=== PATIENT | male | born 1970 | race Hispanic/Latino ===

== ENCOUNTER 2017-08-08 01:35 | Inpatient (IN) | payer OTHER ==
[2017-08-08] VITALS (11 sets, daily range): BP systolic 104–136; BP diastolic 69–90
[~2017-08-08] VITALS: Ht 180.3 cm; Wt 104.8 kg
[2017-08-08] MEDS ORDERED: GLUCAGON 1MG KIT 1 MG ML IM PRN (02:15)
[2017-08-08] MEDS ORDERED: DEXTROSE 50%-WATER 50 ML DISP.SYRIN IV PRN (02:15)
[2017-08-08] MEDS ORDERED: MORPHINE SULFATE 2 MG/ML 1ML SYG IVP PRN ×2 (02:45)
[2017-08-08] MEDS: INSULIN R NPO SS1/2 SQ SCH ×2 (06:00→11:34)
[2017-08-08] MEDS ORDERED: HEPARIN SODIUM 1000UNIT/ML 10ML VIAL ONE (08:10)
[2017-08-08] MEDS ORDERED: IOPAMIDOL-370 75 ML VIAL IV ONE (08:10)
[2017-08-08] MEDS ORDERED: IOPAMIDOL-370 100 ML VIAL IV ONE (08:10)
[2017-08-08] MEDS ORDERED: LIDOCAINE HCL 2% 20ML ONE (08:11)
[2017-08-08] MEDS ORDERED: ASPIRIN 81MG TAB.CHEW PO SCH (09:00)
[2017-08-08] MEDS ORDERED: PANTOPRAZOLE SODIUM 40 MG TABLET.DR PO SCH (09:00)
[2017-08-08] MEDS ORDERED: DOCUSATE SODIUM 100 MG CAP PO SCH (09:00)
[2017-08-08] MEDS ORDERED: INSULIN DETEMIR 10ML 100 UNIT/ML 10ML SQ SCH (09:00)
[2017-08-08] MEDS ORDERED: ENOXAPARIN SODIUM 40 MG/0.4 ML SYRINGE SQ SCH (09:00)
[2017-08-08] MEDS ORDERED: ASPI-1005 PO (09:07)
[2017-08-08] MEDS ORDERED: ATOR40TA69 PO (09:07)
[2017-08-08] MEDS ORDERED: ACETAMINOPHEN EXTRA STRENGTH 500 MG TABLET PO SCH (12:15)
[2017-08-08] MEDS ORDERED: INSULIN R PO SS1/2 SQ SCH (16:30)
[2017-08-08] MEDS ORDERED: ATORVASTATIN CALCIUM 40 MG TABLET PO SCH (21:00)
== END 2017-08-08 15:40 | disposition home or self-care (01) | DRG 287 ==
LOC: 2AH 01:35
PROVIDERS: ADMIT Family Medicine; ATTEND Family Medicine
PROC: 4A023N7 Measurement of Cardiac Sampling and Pressure, Left Heart, Percutaneous Approach (ICD-10-PCS; principal; 2017-08-08)
PROC: B2111ZZ Fluoroscopy of Multiple Coronary Arteries using Low Osmolar Contrast (ICD-10-PCS; 2017-08-08)
PROC: B2151ZZ Fluoroscopy of Left Heart using Low Osmolar Contrast (ICD-10-PCS; 2017-08-08)
DX: I25.10 Atherosclerotic heart disease of native coronary artery without angina pectoris (principal); E11.9 Type 2 diabetes mellitus without complications; Z88.8 Allergy status to other drugs, medicaments and biological substances; Z89.411 Acquired absence of right great toe
CPT/HCPCS: 82948; 93458; C1760; C1894; J1644; J3490; Q9967